=== PATIENT | female | born 1955 | race Hispanic/Latino ===

== ENCOUNTER 2017-07-07 12:26 | Outpatient (CLI) | payer OTHER ==
--- NOTE | 2017-07-07 13:58 | XRay Report ---
ROUTINE CHEST, TWO VIEWS: HISTORY: chest pain. The trachea, heart, mediastinal contour, lung goel and bony thorax are unremarkable. IMPRESSION: Unremarkable chest x-ray.
== END 2017-07-07 12:27 | disposition home or self-care (01) ==
LOC: XRAY 12:26
PROVIDERS: ATTEND Family Medicine
DX: R07.9 Chest pain, unspecified (principal)
CPT/HCPCS: 71046